=== PATIENT | female | born 1960 | race Caucasian/White ===

== ENCOUNTER 2023-06-10 06:35 | Day surgery (SDC) | payer OTHER ==
[~2023-06-10] VITALS: Ht 157.5 cm; Wt 88.5 kg
[2023-06-10 07:29] VITALS: O2SAT 97
[2023-06-10] MEDS ORDERED: SIMETHICONE 40 MG/0.6 ML ML ONE (07:35)
[2023-06-10] MEDS ORDERED: MIDAZOLAM HCL 5 MG/5 ML VIAL ONE ×2 (07:36→08:59)
[2023-06-10] MEDS ORDERED: MEPERIDINE 100 MG INJ. 100 MG/ML VIAL ONE (07:36)
[2023-06-10] MEDS ORDERED: DIPHENHYDRAMINE INJ 50 MG/ML VIAL ONE (08:58)
[2023-06-10 12:27] VITALS: BP_SYST 146; PULSE 87; RESP 16
== END 2023-06-10 10:30 | disposition home or self-care (01) ==
LOC: SDS 06:35 → SMU 06:45 → SDS 10:30
PROVIDERS: ATTEND Internal Medicine
DX: R19.4 Change in bowel habit (principal); K63.5 Polyp of colon; Z86.010 Personal history of colon polyps; K57.30 Diverticulosis of large intestine without perforation or abscess without bleeding; K58.9 Irritable bowel syndrome, unspecified; K64.8 Other hemorrhoids; K21.9 Gastro-esophageal reflux disease without esophagitis; M19.90 Unspecified osteoarthritis, unspecified site; Z90.710 Acquired absence of both cervix and uterus; Z87.891 Personal history of nicotine dependence; Z79.899 Other long term (current) drug therapy
CPT/HCPCS: 45385; 45380; 88305; 99152; G0378; J1200; J2250; J2175